=== PATIENT | male | born 1990 | race African-American/Black ===

== ENCOUNTER 2023-05-24 03:54 | Emergency (ER) | payer OTHER ==
[2023-05-24] MEDS ORDERED: Ketorolac Tromethamine 30 MG/ML VIAL ONE (04:47)
[2023-05-24 05:03] LABS: #Basophils 0.1 thou/uL (0.0-0.2); #Eosinphils 0.1 thou/uL (0.0-0.7); #Lymphocytes 2.7 thou/uL (1.20-3.40); #Monocytes 0.6 thou/uL (0.11-0.59); #Neutrophils 4.7 thou/uL (1.40-6.50); %Basophils 1.8 % (0.0-1.0); %Eosinophils 1.2 % (0.0-10.0); %Lymphocytes 33.2 % (21.0-51.0); %Monocytes 7.7 % (0.0-10.0); %Neutrophils 56.2 % (42.0-75.0); Hematocrit 42.7 % (42.0-52.0); Hemoglobin 14.5 g/dL (14.0-18.0); Mean Corpuscular HGB CONC 34.1 g/dL (32.0-36.0); Mean Corpuscular Volume 91.2 fl (78.0-98.0); Mean Platelet Volume 8.5 fL (7.4-10.4); Platelet Count 283 10x3/uL (130-400); RBC Distribution Width 12.7 % (11.5-14.5); Red Blood Cell (RBC) Count 4.68 mill/uL (4.70-6.10); White Blood Cell (WBC) Count 8.3 10x3/uL (4.8-10.8)
[2023-05-24 05:24] LABS: Prothrombin Time 13.5 sec (12.0-14.7)
[2023-05-24 05:25] LABS: PTT 25.9 sec (22.9-36.1)
[2023-05-24 05:27] LABS: ALT (SGPT) 22 U/L (8-55); AST (SGOT) 25 U/L (5-34); Albumin 4.1 g/dL (3.5-5.0); Alcohol 165.2 mg/dL (Less than 10); Alkaline Phosphatase 56 U/L (40-110); Anion Gap 15 mmol/L (10-20); BUN (Urea Nitrogen) 14 mg/dL (8.9-20.6); Bilirubin, Total 0.5 mg/dL (0.2-1.2); Calc. Creatinine Clearance 0 mL/min (70-130); Calcium 8.1 mg/dL (7.8-10.44); Carbon Dioxide 20 mmol/L (22-29); Chloride 110 mmol/L (98-107); Estimated GFR 80; Globulin 2.9 g/dL (2.4-3.5); Glucose 99 mg/dL (70-105); Lipase 28 U/L (8-78); Sodium 141 mmol/L (136-145)
[2023-05-24] MEDS ORDERED: Iopamidol 370 76% 100 ML VIAL ONE (15:07)
== END 2023-05-24 07:10 | disposition home or self-care (01) ==
LOC: MADERS 03:54
DX: S22.089A Unspecified fracture of T11-T12 vertebra, initial encounter for closed fracture (principal); M54.6 Pain in thoracic spine; F17.290 Nicotine dependence, other tobacco product, uncomplicated; V89.2XXA Person injured in unspecified motor-vehicle accident, traffic, initial encounter
CPT/HCPCS: 70450; 70486; 71260; 72125; 74177; 80053; 80307; 83690; 85025; 85610; 85730; 96374; J1885; Q9967